=== PATIENT | female | born 1960 | race Caucasian/White ===

== ENCOUNTER 2018-09-02 18:51 | Observation (INO) ==
--- NOTE | 2018-09-02 19:13 | ERNOTE ---
Abdominal HPI - General Time Seen by Provider: 09/02/18 18:51 Source: patient Exam Limitations: no limitations - Immun/Allergies/Home Medications Immunizatons: IMMUNIZATION HX Immunizations Up to Date Yes History of Influenza Vaccine No Hx Pneumococcal Vaccination No Allergies/Adverse Reactions: Allergies Sulfa (Sulfonamide Antibiotics) Allergy (Verified 09/02/18 18:56) upset stomach Penicillins Adverse Reaction (Verified 09/02/18 18:56) bad yeast infection Home Medications: HOME MEDICATIONS Citalopram Hydrobromide [Citalopram HBr] 10 mg PO DAILY 01/31/15 [Last Taken Unknown] Esomeprazole Magnesium [Nexium] 40 mg PO DAILY 01/31/15 [Last Taken Unknown] rOPINIRole HCL [Requip] 0.25 mg PO DAILY 01/31/15 [Last Taken Unknown] - History of Present Illness Narrative: Patient has had epigastric and RUQ pain constant for two days. She was seen in the ER in [place], has labs, EKG and abdominal CT (w/o contrast). Her WBC was 18.000, her Ct concerning for possible cholecystitis. As the ER did not have ultrasound capability and might need surgery patient was transferred to [facility] ER. Her last po intake was a GI cocktail at 13:00. She was received dilaudid as is currently pain free. After dilaudid in the ER her blood pressure was low and she came by EMS The patient was discussed with Dr Akhtar prior to transfer Date (Duration): 08/31/18 Timing: constant Quality: moderate Activities at Onset: none Associated Symptoms: Present: nausea, vomiting. Absent: chest pain, fever/ chills Prior Abdominal Problems: Present: none Review of Systems - Review of Systems Constitutional: Absent: recent illness, fever, chills ENT: Present: no symptoms reported Respiratory: Absent: shortness of breath Cardiology: Absent: chest pain Genitourinary: Present: See HPI Neurological: Absent: headache Medical History (Last Reviewed 09/02/18 @ 19:11 by Priya Delgado MD) Depression GERD (gastroesophageal reflux disease) Influenza vaccine refused does not want to receive. MILADIS Timmons Restless leg Irritable bowel syndrome Scoliosis Sinusitis Surgical History: Surgical History (Last Reviewed 09/02/18 @ 19:11 by Priya Delgado MD) H/O colonoscopy Onset Date: ~2018 done in 2018 History of appendectomy Family History: Family History (Last Updated 09/02/18 @ 18:56 by Miladis Chaudhari RN) Father Myocardial infarction Mother Myocardial infarction Social History: Preferred Language Guinean Do you have any restorationist or No cultural preference? Smoking Status Current every day smoker Have you smoked in the past 12 Yes months Alcohol Use none Drug Use none (Last Updated 08/25/18 @ 14:58 by Ivy Bhatia DPM) No Social History Section defined Physical Exam - Physical Exam General Appearance: Present: wd/wn, alert, no apparent distress Respiratory: Present: no respiratory distress, normal breath sounds, no accessory muscle use, lungs clear Cardiovascular/Chest: Present: regular rate, rhythm, no murmur Gastrointestinal/Abdominal: Present: normal bowel sounds, nondistended, soft, tenderness - epigastric and RUQ, guarding, Johnson sign Extremity Exam: Present: no edema Neurological Exam: Present: alert, oriented, normal mood/affect, no motor/s ensory deficits Skin Exam: Present: normal color, warm/dry ED Progress - Results and Orders Patient's Lab Results:: I have reviewed the patient's lab results. - reviewed labs and CT results from [place] - Vital Signs Patient's Vital Signs:: I have reviewed the patient's vital signs. - Progress/Reassessment Progress Note-Subjective: 09/02/18 19:33 discussed preliminary ultrasound report with patient. blood pressure continues to run low, will repeat labs, get LA and add UCS - Transfer of Care Physician Sign Out: Priya Delgado Receiving Physician: Sid Cerna Clinical Impression: Abdominal pain - Departure Disposition: Still a patient Condition: Stable Referrals: Camille Ga DO [Primary Care Provider] -
[2018-09-02 19:47] LABS: Hemoglobin 14.3 gm/dL (12.5-16.0); Mean Cell Volume 90.7 fl (78-100); Mean Corpuscular Hemoglobin 29.5 pg (27-31); Mean Corpuscular Hgb Conc 32.5 g/dl (32-36); Mean Platelet Volume 9.4 fl (8-12.5); Neutrophil # 13.4 K/mm3 (1.3-6.0); Neutrophil % 79.1 % (42-75.0); Platelet Count 387 K/mm3 (150-450); Red Blood Count 4.85 M/mm3 (4.2-5.4); Red Cell Distribution Width 14.1 % (11.5-14.0)
[2018-09-02] MEDS ORDERED: ACETAMINOPHEN 500 MG TABLET PO PRN (20:09)
[2018-09-02] MEDS ORDERED: oxyCODONE HCL/ACETAMINOPHEN 1 TAB TABLET PO PRN (20:09)
[2018-09-02] MEDS ORDERED: HYDROmorphone HCL 1 MG/ML DISP.SYRIN IV PRN (20:09)
[2018-09-02] MEDS ORDERED: NORMAL SALINE 1,000 ML IV ONE (20:11)
[2018-09-02 20:15] LABS: Albumin * 3.3 gm/dl (3.4-5.0); Anion Gap 10.9 mmol/L (6.8-13.8); BUN/Creatinine Ratio 20.2 (9.0-21.6); Bilirubin, Total 0.7 mg/dL (0.0-1.1); Ca. Corrected For Albumin 9.3 mg/dL (8.4-10.2); Calcium * 9.1 mg/dL (7.9-10.9); Carbon Dioxide 26.6 mmol/L (24-32.6); Potassium 3.5 mmol/L (3.4-4.6); Total Protein 7.3 gm/dL (6.2-8.2)
--- NOTE | 2018-09-02 20:20 | CONS ---
HPI - General Date of Service: 09/02/18 Source: patient, family, RN/MD, RN notes reviewed, old records Exam Limitations: other - She has received IV pain medication - History of Present Illness Initial Comments: She states she was fine in the morning on 08/31/2018 however then over a fairly short period of time developed epigastric discomfort "like my GERD". He began having dry heaves and vomited multiple times and even threw up blood once. She then was sore under her ribs and had generalized abdominal discomfort. She was unable to keep anything down yesterday even water and today presented to the emergency room in [place]. There she was found to have elevated white blood cell count. Her CT scan was done without contrast. The report suggested that if there was concern for gallbladder disease and ultrasound should be performed. They did not have ultrasound after [facility] and [place] and called here for transfer. She was given IV Dilaudid prior to transfer and her blood pressure decreased. After arrival here an ultrasound was done. There is cholelithiasis but the wall is not thickened there is no pericholecystic fluid. She did have some tenderness on ultrasound. Currently she feels better after pain medication and states she hurts worse in the left upper quadrant and left lower quadrant. Severity: moderate Modifying Factors - (Improves): Reports: medication Associated Symptoms: cough, nausea, vomiting Allergies/Adverse Reactions: Allergies Sulfa (Sulfonamide Antibiotics) Allergy (Verified 09/02/18 18:56) upset stomach Penicillins Adverse Reaction (Verified 09/02/18 18:56) bad yeast infection Home Medications: Home Medications Medication Instructions Recorded Last Taken Citalopram Hydrobromide 10 mg PO DAILY 01/31/15 Unknown [Citalopram HBr] Esomeprazole Magnesium [Nexium] 40 mg PO DAILY 01/31/15 Unknown rOPINIRole HCL [Requip] 0.25 mg PO DAILY 01/31/15 Unknown Review of Systems - Review of Systems Generalized/Overall Review: Present: Malaise. Absent: Chills, Fever EENTM: Present: No Symptoms Reported Respiratory: Present: Cough Cardiac: Present: No Symptoms Reported Abdominal: Present: Other - She had multiple dry heaves. She had epigastric discomfort and now complains of left lower quadrant pain Musculoskeletal: Present: No Symptoms Reported Neurological: Present: No Symptoms Reported Skin: Present: No Symptoms Reported Physical Examination - Exam Vital Signs: Vital Signs - Last Taken Temp 36.4 C 09/02/18 18:57 Pulse 78 09/02/18 19:53 Resp 20 09/02/18 19:53 BP 108/63 09/02/18 19:53 Pulse Ox 94 09/02/18 19:53 O2 Oxygen Delivery Method Room Air Constitutional: Present: Alert, Oriented x3, Cooperative, Mild distress, Obese ENT Exam: Present: normal ENT inspection Neck: Present: supple, normal inspection Respiratory: Present: no respiratory distress Cardiovascular/Chest: Present: regular rate, rhythm Abdomen: Present: soft, other - Very tympanitic to percussion with tenderness to palpation in the left upper quadrant and especially the left lower quadrant. Absent: guarding, positive Johnson sign Extremity: Present: normal range of motion, normal inspection Skin Exam: Present: normal color Neurologic: Present: crating and moving estimator II-XII nml as tested, no motor/sensory deficits Appearance: Present: appropriate appearance, appropriate insight Eye contact: Present: cooperative, good eye contact Thoughts: Present: normal thought pattern - Results and Findings: Lab/Microbiology results last 24 hrs: Abnormal/Pending Laboratory Last 24 HRS 09/02/18 19:40 WBC 17.0 H RDW 14.1 H Immature Gran % (Auto) 0.60 H Immature Gran # (Auto) 0.10 H Neutrophils % 79.1 H Lymphocytes % 14.1 L Neutrophils # 13.4 H - Assessments/Findings (1) Abdominal pain Diagnosis(s): She does have a history of GERD. She had an EGD last year and was told "she makes too much acid" and that she had a hiatal hernia. She had a colonoscopy at the same time which revealed diverticulosis. She has had gallbladder ultrasound in the past as well. Her white blood cell count is elevated, however liver function studies amylase /lipase are all normal. Urinalysis was not obtained in [place] and will be performed here (the patient states she did pass some blood when she urinated after her CT scan). She has minimal to no tenderness in the right upper quadrant and is more tender in the left lower quadrant. Unfortunately an HB scan could not be performed on the weekend, this would be diagnostic if she has acute cholecystitis. Her physical findings and normal liver function studies would argue against acute cholecystitis, however she has had pain medication. Pamphlets on GERD, gallbladder disease, and diverticulosis were reviewed with her and given to her. Would recommend n.p.o. status, IV fluids, empiric IV antibiotic (urinalysis is pending) with serial exams. Will reexamine the patient in the morning Problem: Acute
[2018-09-02 20:24] LABS: Urine Appearance Clear (CLEAR); Urine Bilirubin Negative (NEGATIVE); Urine Blood 150 /ul (NEGATIVE); Urine Color Yellow; Urine Ketone Negative (NEGATIVE); Urine Protein Negative (NEGATIVE); Urine Specific Gravity 1.005 SP.GR. (1.005-1.010); Urine Urobilinogen Normal (NORMAL)
[2018-09-02 20:25] LABS: Urine Bacteria None Seen; Urine Nitrite Positive (NEGATIVE); Urine RBC 0-5 /hpf (0-5); Urine WBC 0-5 /hpf (0-5)
[2018-09-02] MEDS: PIPERACILLIN SODIUM/TAZOBACTAM 3.375 GM in DEXTROSE 5 % IN WATER 100 ML IV SCH ×2 (20:55)
[2018-09-02] MEDS: SACCHAROMYCES BOULARDII 250 MG CAPSULE PO SCH (22:11)
--- NOTE | 2018-09-02 23:34 | HP ---
Chief Complaint - Chief Complaint Date of Service: 09/02/18 Time of Service: 23:00 Chief Complaint: abdominal pain History of Present Illness: Patsy is a 57 yo female who presented to the ER with acute abdominal pain. She had imaging with concern about having acute cholecystitis. Dr. Akhtar was consulted who did not believe her to have acute cholecystitis. She continued to have significant abdominal pain. It was not brought on by any changes that she is aware of in either her diet, activity, or medications. She has not had anything to eat out of the ordinary and no sick friends or family members. She does report increased urinary frequency but no dysuria. Because of concern for acute cholecystitis she was given zosyn started in the ER. Medical History (Last Reviewed 09/02/18 @ 21:22 by Roslyn Hathaway RN) Depression GERD (gastroesophageal reflux disease) Influenza vaccine refused does not want to receive. 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 Smoking Status Current every day smoker Have you smoked in the past 12 Yes months Do you dip or chew tobacco No Alcohol Use none Drug Use none (Last Updated 08/25/18 @ 14:58 by Ivy Bhatia DPM) No Social History Section defined Review Of Systems (GEN) - Review of Systems Generalized/Overall Review: Present: Chills, Diaphoresis, Fatigue. Absent: Weakness, Fever EENTM: Present: No Symptoms Reported Respiratory: Absent: Cough, Shortness of Breath Cardiac: Absent: Chest Pain, Edema, Palpitations Abdominal: Present: Nausea, Abdominal Pain. Absent: Vomiting, Constipation, Diarrhea Genitourinary: Present: Frequency. Absent: Burning, Urgency Musculoskeletal: Present: No Symptoms Reported Neurological: Present: No Symptoms Reported Skin: Present: No Symptoms Reported Endocrine: Present: No Symptoms Reported Immunizations: IMMUNIZATION HX Immunizations Up to Date Yes History of Influenza Vaccine No Hx Pneumococcal Vaccination No Allergies/Adverse Reactions: Allergies Allergy/AdvReac Type Severity Reaction Status Date / Time Sulfa (Sulfonamide Allergy upset Verified 09/02/18 18:56 Antibiotics) stomach Penicillins AdvReac bad yeast Verified 09/02/18 18:56 infection Home Medications: HOME MEDICATIONS Citalopram Hydrobromide [Citalopram HBr] 10 mg PO DAILY 01/31/15 [Last Taken Unknown] Esomeprazole Magnesium [Nexium] 40 mg PO DAILY 01/31/15 [Last Taken Unknown] rOPINIRole HCL [Requip] 0.25 mg PO DAILY 01/31/15 [Last Taken Unknown] Ciprofloxacin HCl [Cipro] 500 mg PO BID #20 tab 09/03/18 [Last Taken Unknown] Exam - Exam Vital Signs: Vital Signs - Last Taken Temp 36.9 C 09/02/18 23:21 Pulse 79 09/02/18 23:21 Resp 20 09/02/18 23:21 BP 102/55 09/02/18 23:21 Pulse Ox 96 09/02/18 23:21 Constitutional: Present: Alert, Oriented x3, Cooperative ENT Exam: Present: hearing grossly normal Eye Exam: bilateral eye: normal inspection Respiratory: Present: lungs clear, normal breath sounds Cardiovascular/Chest: Present: regular rate, rhythm, no murmur Peripheral Pulses: radial (R): 2+, radial (L): 2+ Abdomen: Present: Normal bowel sounds, soft, nondistended, tender. Absent: guarding, rigidity Extremity: Present: normal inspection Appearance: Present: appropriate appearance, appropriate insight Eye contact: Present: cooperative, good eye contact, normal speech Diagnostic Studies: Abnormal Lab Results 09/02/18 09/02/18 09/02/18 Range/Units 19:40 19:40 20:10 WBC 17.0 H (4.0-10.5) K/mm3 RDW 14.1 H (11.5-14.0) % Immature Gran % (Auto) 0.60 H (0.001-0.429) % Immature Gran # (Auto) 0.10 H (0.000-0.0310) K/mm3 Neutrophils % 79.1 H (42-75.0) % Lymphocytes % 14.1 L (20-51) % Neutrophils # 13.4 H (1.3-6.0) K/mm3 Sodium 128 L (132-142) mmol/L Plasma Sodium 128 L (130-142) mmol/L Chloride 94 L (97-106) mmol/L Random Glucose 111 H (70-110) mg/dL ALT 15 L (19-67) U/L Albumin 3.3 L (3.4-5.0) gm/dl Urine Blood 150 H (NEGATIVE) /ul Urine Nitrate Positive H (NEGATIVE) Laboratory Results WBC 17.0 K/mm3 (4.0-10.5) H 09/02/18 19:40 RBC 4.85 M/mm3 (4.2-5.4) 09/02/18 19:40 Hgb 14.3 gm/dL (12.5-16.0) 09/02/18 19:40 Hct 44.0 % (37.0-47.0) 09/02/18 19:40 MCV 90.7 fl (78-100) 09/02/18 19:40 MCH 29.5 pg (27-31) 09/02/18 19:40 MCHC 32.5 g/dl (32-36) 09/02/18 19:40 RDW 14.1 % (11.5-14.0) H 09/02/18 19:40 Plt Count 387 K/mm3 (150-450) 09/02/18 19:40 MPV 9.4 fl (8-12.5) 09/02/18 19:40 Immature Gran % (Auto) 0.60 % (0.001-0.429) H 09/02/18 19:40 Immature Gran # (Auto) 0.10 K/mm3 (0.000-0.0310) H 09/02/18 19:40 Neutrophils % 79.1 % (42-75.0) H 09/02/18 19:40 Lymphocytes % 14.1 % (20-51) L 09/02/18 19:40 Monocytes % 5.9 % (0.0-9) 09/02/18 19:40 Eosinophils % 0.1 % (0.0-3.0) 09/02/18 19:40 Basophils % 0.2 % (0.0-1.0) 09/02/18 19:40 Nucleated RBC % 0.0 k/mm3 (0-1) 09/02/18 19:40 Neutrophils # 13.4 K/mm3 (1.3-6.0) H 09/02/18 19:40 Lymphocytes # 2.39 k/mm3 (1.5-3.5) 09/02/18 19:40 Monocytes # 1.0 k/mm3 (0.0-1.0) 09/02/18 19:40 Eosinophils # 0.0 k/mm3 (0.0-0.7) 09/02/18 19:40 Absolute Basophils 0.0 k/mm3 (0.0-0.1) 09/02/18 19:40 Sodium 128 mmol/L (132-142) L 09/02/18 19:40 Plasma Sodium 128 mmol/L (130-142) L 09/02/18 19:40 Potassium 3.5 mmol/L (3.4-4.6) 09/02/18 19:40 Chloride 94 mmol/L (97-106) L 09/02/18 19:40 Carbon Dioxide 26.6 mmol/L (24-32.6) 09/02/18 19:40 Anion Gap 10.9 mmol/L (6.8-13.8) 09/02/18 19:40 BUN 17 mg/dL (3-23) 09/02/18 19:40 Creatinine 0.84 mg/dL (0.4-1.4) 09/02/18 19:40 Est GFR (Non-Af Amer) 74 mL/min (60-130) 09/02/18 19:40 BUN/Creatinine Ratio 20.2 (9.0-21.6) 09/02/18 19:40 Random Glucose 111 mg/dL (70-110) H 09/02/18 19:40 Lactic Acid, Venous 1.1 mmol/L (0.4-2.0) 09/02/18 19:40 Calcium 9.1 mg/dL (7.9-10.9) 09/02/18 19:40 Calcium Adj for Albumin 9.3 mg/dL (8.4-10.2) 09/02/18 19:40 Total Bilirubin 0.7 mg/dL (0.0-1.1) 09/02/18 19:40 AST 14 U/L (0-48) 09/02/18 19:40 ALT 15 U/L (19-67) L 09/02/18 19:40 Alkaline Phosphatase 103 U/L (50-170) 09/02/18 19:40 Total Protein 7.3 gm/dL (6.2-8.2) 09/02/18 19:40 Albumin 3.3 gm/dl (3.4-5.0) L 09/02/18 19:40 Urine Color Yellow 09/02/18 20:10 Urine Appearance Clear (CLEAR) 09/02/18 20:10 Urine pH 6.0 pH (5.0-7.0) 09/02/18 20:10 Ur Specific [place] 1.005 SP.GR. (1.005-1.010) 09/02/18 20:10 Urine Protein Negative mg/dL (NEGATIVE) 09/02/18 20:10 Urine Glucose (UA) Negative mg/dL (NEGATIVE) 09/02/18 20:10 Urine Ketones Negative mg/dL (NEGATIVE) 09/02/18 20:10 Urine Blood 150 /ul (NEGATIVE) H 09/02/18 20:10 Urine Nitrate Positive (NEGATIVE) H 09/02/18 20:10 Urine Bilirubin Negative mg/dl (NEGATIVE) 09/02/18 20:10 Urine Urobilinogen Normal EU/dl (NORMAL) 09/02/18 20:10 Ur Leukocyte Esterase Negative /ul (NEGATIVE) 09/02/18 20:10 Urine RBC 0-5 /hpf (0-5) 09/02/18 20:10 Urine WBC 0-5 /hpf (0-5) 09/02/18 20:10 Ur Epithelial Cells 0-5 /hpf (0-5) 09/02/18 20:10 Urine Bacteria None seen (NONE) 09/02/18 20:10 Urine Culture Comments Culture to follow 09/02/18 20:10 Assessment/Plan - Narrative Narrative: Patsy is a 57 yo female with severe abdominal pain. She was given pain medication in the ER and her pain is improved. She is currently feeling better. Dr. Akhtar was consulted for possible cholecystitis but this is not likely her problem. UA suggestive of UTI, culture pending. Will admit to observation overnight to see how she continues to do. If she continues to do well will plan to discharge to home tomorrow with outpatient treatment of UTI. - Assessment/Plan (1) Abdominal pain Problem: Acute Qualifiers: Abdominal location: generalized Qualified Code(s): R10.84 - Generalized abdominal pain
[2018-09-02] MEDS ORDERED: DILTIAZEM HCL 5 MG/ML VIAL IV ONE ×2 (23:40→23:45)
[2018-09-03 00:21] LABS: Albumin * 3.1 gm/dl (3.4-5.0); Anion Gap 11.2 mmol/L (6.8-13.8); BUN/Creatinine Ratio 19.8 (9.0-21.6); Bilirubin, Total 0.9 mg/dL (0.0-1.1); Ca. Corrected For Albumin 9.3 mg/dL (8.4-10.2); Calcium * 8.9 mg/dL (7.9-10.9); Carbon Dioxide 26.9 mmol/L (24-32.6); Potassium 3.1 mmol/L (3.4-4.6); TSH * 5.026 uIU/mL (0.358-3.74); Total Protein 6.9 gm/dL (6.2-8.2); Troponin I 0.029 ng/mL (0.00-0.10)
[2018-09-03] MEDS ORDERED: NORMAL SALINE 1,000 ML IV ONE (00:37)
[2018-09-03] MEDS: PIPERACILLIN SODIUM/TAZOBACTAM 3.375 GM in DEXTROSE 5 % IN WATER 100 ML IV SCH ×2 (04:52)
[2018-09-03] MEDS ORDERED: NORMAL SALINE 1,000 ML IV PRN (05:51)
[2018-09-03] MEDS: SACCHAROMYCES BOULARDII 250 MG CAPSULE PO SCH (08:32)
--- NOTE | 2018-09-03 10:17 | DS ---
(1) UTI (urinary tract infection) Problem: Acute (2) Atrial fibrillation with RVR Problem: Acute Description of Stay: Patsy is a 57 yo female admitted for abdominal pain with potential concern for acute cholecystitis. She was admitted to observation and started on zosyn. UA was obtained and suspicious for UTI. A urine culture was taken and pending. Over night she went into atrial fibrillation with rapid ventricular rate. This is the first occurrence of atrial fibrillation that she was aware of. She was treated with Normal Saline bolus and IV diltiazem 15mg and she converted back to normal sinus rhythm and remained in normal sinus rhythm. She was continued on fluids over night. This morning she is feeling well and has no concerns. Her abdominal pain is improved. The urine culture is growing gram negative rods. As she is feeling well and the source of her symptoms have been identified as a urinary tract infection she will be discharged to home and continued on Ciprofloxacin BID. As her symptoms were higher there is some concern for renal involvement and I will treat for 10 days. Procedures Performed: none Results and Findings: Pending Mircobiology Results 09/02/18 20:06 Urine,Clean Catch Urine Culture - Preliminary Gram Negative Bacilli Lab Pending Results 09/02/18 19:40: WBC 17.0 H, RBC 4.85, Hgb 14.3, Hct 44.0, MCV 90.7, MCH 29.5, MCHC 32.5, RDW 14.1 H, Plt Count 387, MPV 9.4, Immature Gran % (Auto) 0.60 H, Immature Gran # (Auto) 0.10 H, Neutrophils % 79.1 H, Lymphocytes % 14.1 L, Monocytes % 5.9, Eosinophils % 0.1, Basophils % 0.2, Nucleated RBC % 0.0, Neutrophils # 13.4 H, Lymphocytes # 2.39, Monocytes # 1.0, Eosinophils # 0.0, Absolute Basophils 0.0 09/02/18 19:40: Sodium 128 L, Plasma Sodium 128 L, Potassium 3.5, Chloride 94 L, Carbon Dioxide 26.6, Anion Gap 10.9, BUN 17, Creatinine 0.84, Est GFR (Non-Af Amer) 74, BUN/Creatinine Ratio 20.2, Random Glucose 111 H, Calcium 9.1, Calcium Adj for Albumin 9.3, Total Bilirubin 0.7, AST 14, ALT 15 L, Alkaline Phosphatase 103, Total Protein 7.3, Albumin 3.3 L 09/02/18 19:40: Lactic Acid, Venous 1.1 09/02/18 20:10: Urine Color Yellow, Urine Appearance Clear, Urine pH 6.0, Ur Specific [place] 1.005, Urine Protein Negative, Urine Glucose (UA) Negative, Urine Ketones Negative, Urine Blood 150 H, Urine Nitrate Positive H, Urine Bilirubin Negative, Urine Urobilinogen Normal, Ur Leukocyte Esterase Negative, Urine RBC 0-5, Urine WBC 0-5, Ur Epithelial Cells 0-5, Urine Bacteria None seen, Urine Culture Comments Culture to follow 09/02/18 23:50: Sodium 132, Plasma Sodium 132, Potassium 3.1 L, Chloride 97, Carbon Dioxide 26.9, Anion Gap 11.2, BUN 18, Creatinine 0.91, Est GFR (Non-Af Amer) 68, BUN/Creatinine Ratio 19.8, Random Glucose 101, Calcium 8.9, Calcium Adj for Albumin 9.3, Total Bilirubin 0.9, AST 18, ALT 18 L, Alkaline Phosphatase 99, Troponin I 0.029, Total Protein 6.9, Albumin 3.1 L, TSH 5.026 H Discharge Location: Home Disposition: Home self-care Condition: Good Discharge Activity: Activity as tolerated Discharge Diet: General/regular food Referrals: Camille Ga DO [Primary Care Provider] - One Week Problem Oriented Discharge Instructions to Patient/Family: Urinary Tract Infection, Adult, Rmin-[id number], Atrial Fibrillation, [id number] Prescriptions (Any new or edited meds): Ciprofloxacin HCl [Cipro] 500 mg PO BID #20 tab Complete Home Medications List: Complete Home Medication List: Citalopram Hydrobromide [Citalopram HBr] 10 mg PO DAILY 01/31/15 Esomeprazole Magnesium [Nexium] 40 mg PO DAILY 01/31/15 rOPINIRole HCL [Requip] 0.25 mg PO DAILY 01/31/15 Ciprofloxacin HCl [Cipro] 500 mg PO BID #20 tab 09/03/18
[2018-09-03 10:41] VITALS: BP 96/49
[2018-09-03 10:41] LABS: Hematocrit 42.4 % (37.0-47.0); Hemoglobin 13.1 gm/dL (12.5-16.0); Mean Corpuscular Hgb Conc 30.9 g/dl (32-36); Mean Platelet Volume 9.6 fl (8-12.5); Neutrophil # 8.4 K/mm3 (1.3-6.0); Neutrophil % 70.1 % (42-75.0); Platelet Count 300 K/mm3 (150-450); Red Blood Count 4.51 M/mm3 (4.2-5.4); Red Cell Distribution Width 14.3 % (11.5-14.0)
[2018-09-03 10:56] LABS: Albumin * 2.7 gm/dl (3.4-5.0); Anion Gap 11.4 mmol/L (6.8-13.8); Bilirubin, Total 0.6 mg/dL (0.0-1.1); Ca. Corrected For Albumin 9.2 mg/dL (8.4-10.2); Calcium * 8.5 mg/dL (7.9-10.9); Carbon Dioxide 27.8 mmol/L (24-32.6); Potassium 3.2 mmol/L (3.4-4.6); Total Protein 6.1 gm/dL (6.2-8.2); Troponin I 0.045 ng/mL (0.00-0.10)
--- NOTE | 2018-09-03 11:44 | PN ---
Dictated Progress Note - Date and Time Seen: Date: 09/03/18 Time: 11:38 - Progress Note Narrative: Vital Signs - Last Taken Temp 37.1 C 09/03/18 10:50 Pulse 68 09/03/18 10:50 Resp 18 09/03/18 10:50 BP 96/49 09/03/18 10:50 Pulse Ox 96 09/03/18 10:50 Abnormal/Pending Laboratory Last 24 HRS 09/03/18 09/03/18 09/02/18 10:12 10:12 23:50 WBC 12.0 H D MCHC 30.9 L RDW 14.3 H Immature Gran % (Auto) 0.70 H Immature Gran # (Auto) 0.08 H Neutrophils % Lymphocytes % Neutrophils # 8.4 H Sodium Plasma Sodium Potassium 3.2 L 3.1 L Chloride Random Glucose ALT 13 L 18 L Total Protein 6.1 L Albumin 2.7 L 3.1 L TSH 5.026 H Urine Blood Urine Nitrate 09/02/18 09/02/18 09/02/18 20:10 19:40 19:40 WBC 17.0 H MCHC RDW 14.1 H Immature Gran % (Auto) 0.60 H Immature Gran # (Auto) 0.10 H Neutrophils % 79.1 H Lymphocytes % 14.1 L Neutrophils # 13.4 H Sodium 128 L Plasma Sodium 128 L Potassium Chloride 94 L Random Glucose 111 H ALT 15 L Total Protein Albumin 3.3 L TSH Urine Blood 150 H Urine Nitrate Positive H Culture 09/02/18 20:06 Urine Culture - Preliminary Urine,Clean Catch Gram Negative Bacilli Today she feels much better. She had episode of A fib with RVR which converted back to sinus rhythm. Urine is growing gram negative bacteria. WBC decreased. No fever. Has had BM and "can feel things moving". No RUQ pain and tolerated po intake. IMPRESSION: Probably NOT cholecystitis, but due to UTI and she does have diverticulosis and "irritable bowel". RECOMMEND: She has pamphlets on GERD, diverticulosis and GB disease to review. Stronly suggested trial of Benefiber/Miralax with titration. Phone # given to call progress. She usually sees Dr Ga, and she was advised to see her or find another PCP as she needs someone to f/u. Also has slightly elevated TSH which could be repeated.
== END 2018-09-03 11:47 | disposition home or self-care (01) ==
LOC: MS 18:51 → ER 18:51 → MS 21:03
PROVIDERS: ADMIT Family Medicine; ATTEND Family Medicine
CPT/HCPCS: 36415; 76705; 80053; 81001; 83605; 84443; 84484; 85025; 87086; 93005; 96361; 96365; 96366; 96375; 99284; G0378